=== PATIENT | male | born 1995 | race Hispanic/Latino ===

== ENCOUNTER 2017-01-19 02:35 | Emergency (ER) | payer OTHER ==
[2017-01-19 02:54] VITALS: BP 140/81; PULSE 101; RESP 16; TEMP 98; O2SAT 98
[2017-01-19] MEDS ORDERED: Lidocaine 2% w Epi 1:100,000 Inj IJ ONE (02:59)
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
== END 2017-01-19 03:42 | disposition home or self-care (01) ==
LOC: H.ER 02:35
DX: S01.81XA Laceration without foreign body of other part of head, initial encounter (principal); W22.8XXA Striking against or struck by other objects, initial encounter; Y92.89 Other specified places as the place of occurrence of the external cause